=== PATIENT | male | born 1965 | race Caucasian/White ===

== ENCOUNTER → 2017-07-12 | Outpatient (CLI) | payer MEDICARE, OTHER ==
[~2017-07-12] MED LIST: COL-RITE50 MG PO; FAMOTIDINE PO; FLEXERIL PO; FLEXERIL10 M1 PO; HYDROXYZINE HCL50 MG PO; LIORESAL10 MG DOB; LISINOPRIL-HCTZ1 T19 PO; LORTAB 7.5-5001 TAB PO; LYRICA300 MG PO; MOTRIN400 MG PO; PERCOCET5/325 PO; PRILOSEC40 MG PO; SAVELLA50 MG PO; SERTRALINE HCL50 M1 PO; TYLOX 5/500 CAP1 CAP PO; ULTRAM PO; ZANAFLEX4 M1 PO
--- NOTE | ~2017-07-12 | MR11 ---
[facility] A Service of [facility] & [facility] [place] RADIOLOGY TEXT RESULTS PATIENT: CB WONG LOCATION: [facility] : 69 UNIT #: [id number] AGE: [address]: Clyde Kahn MD SEX: M ORDER DR: [id number] [facility] [address] [place], [place] [address] [id number] O MR#: [id number] Acc #: [id number] NAME: CB WONG. : 1965 SEX: M STUDY DATE/TIME: 07/12/2017 18:17 UNIT: [facility] ROOM: STUDY DESCRIPTION: MR Ankle Wo Contrast Rt Attending Physician: Yarely Kahn M.D. Referring Physician: Yarely Kahn M.D. Ordering Physician: Yarely Kahn M.D. Primary Care Physician: Clem Jose M.D. MRI CENTER REPORT This report is preliminary unless electronic signature is present. EXAM MRI of the right ankle without contrast HISTORY 52-year-old male fractured both ankles, February 2014; then fractured right ankle again, June 26, 2015. Chronic right ankle pain ever since last surgery in 2014. 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 COMPARISON Right ankle films 07/05/2017 TECHNIQUE Multiplanar multiecho imaging was performed of the right ankle utilizing a high field magnet dedicated protocol. FINDINGS Extensive susceptibility artifact is noted within the lateral aspect of the midfoot corresponding to a fixation screw within the fifth metatarsal. There is an oblique fracture through the distal fibula measuring about 5 cm in length. There does appear to be some endosteal healing of the fracture but no definitive contiguous marrow space is identified. Trace amount of edema is seen along the margins of the fracture. Some moderate amount of high signal also noted within the fracture defect. CT findings favor a partial union of the fracture though this may be better assessed with thin section CT. Small amount of ankle joint fluid and a trace amount of subtalar joint fluid. Along the lateral aspect of the ankle, there is a longitudinal split tear involving the retromalleolar and inframalleolar peroneus brevis tendon with associated tendinopathy. The tear extends over approximately 7 cm length of the peroneus brevis tendon. Peroneus longus tendon demonstrates minimal tendinopathy. Remainder of the ankle tendons appear normal. Lateral ankle ligaments appear intact. The superficial and deep deltoid ligament appears intact. Sinus tarsi, STS. [facility] A Service of [facility] RADIOLOGY TEXT RESULTS PATIENT: CB WONG LOCATION: [facility] : 69 UNIT #: [id number] AGE: [address]: Clyde Kahn MD SEX: M ORDER DR: tarsal tunnel and plantar fascia unremarkable. Mild generalized soft tissue swelling edema about the ankle. IMPRESSION 1. Persistent fracture deformity of the distal fibula. Imaging features suggest incomplete union of the fracture though I suspect there is at least some degree of endosteal healing but no contiguous marrow space is seen across the fracture to suggest a firm bony union. Some residual edema noted within the fracture line and along the fracture margins. 2. 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 3. Mild peroneus longus tendinopathy. Dictated by... Julianna Ordaz M.D. THIS IS AN ELECTRONICALLY VERIFIED REPORT Julianna Ordaz M.D. at 07/14/2017 5:03 PM LILIAN/toshia TD: 07/13/2017 16:27 JOB #: [id number] MRI CENTER REPORT Page 1 of 1 COPY
== END | disposition home or self-care (01) ==
LOC: CMRI 17:37
DX: S82.401K Unspecified fracture of shaft of right fibula, subsequent encounter for closed fracture with nonunion (principal); S82.831K Other fracture of upper and lower end of right fibula, subsequent encounter for closed fracture with nonunion; S86.311D Strain of muscle(s) and tendon(s) of peroneal muscle group at lower leg level, right leg, subsequent encounter; M76.71 Peroneal tendinitis, right leg
CPT/HCPCS: 73721